=== PATIENT | male | born 1950 | race African-American/Black ===

== ENCOUNTER 2021-02-15 10:32 | Outpatient (CLI) | payer MEDICARE, MEDICAID, SELFPAY ==
--- NOTE | ~2021-02-15 | CT_ITS ---
EXAMINATION: CT diagnostic chest w con EXAM DATE: 02/15/2021 11:14 INDICATION: Chest X-Ray alert, abnormal CXR. Shortness of breath. TECHNIQUE: Spiral CT of the chest following intravenous injection of 75 mL Omnipaque 350. Axial, cor onal and sagittal images of the chest were reviewed. Coronal maximum intensity pixel images of chest reviewed. The dose-length product (DLP) for this examination was 310.47 mGy-cm. The exposure was t ailored according to patient size (auto mA exposure control), and iterative reconstruction (ASIR) was used as additional dose reduction technique. There is no prior study for comparison. FINDINGS: There is right apical mass measuring 8 cm, with chest wall invasion and erosion of the lef t 3rd rib inner aspect, Pancoast tumor. CT-guided for cutaneous biopsy indicated for histologic corre lation. There is moderate emphysema. There are no pleural or pericardial effusions. Tracheobronchial tree i s patent. There is no mediastinal, hilar or axillary lymphadenopathy. There is no pneumothorax. Heart normal in size. There is mild coronary arterial calcification, arterial sclerosis. There is a left adrenal gland 5.5 cm mass, probably metastatic lesion. Small osteolytic lesion in the right 10th rib, likely metastatic. IMPRESSION: 1. Right upper lobe 8 cm mass with chest wall invasion; recommend CT-guided biopsy. 2. 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 3. Moderate emphysema. Reviewed, dictated and finalized at location B. N FOLDER IMPRESSION: 1. Right upper lobe 8 cm mass with chest wall invasion; recommend CT-guided bi opsy. 2. 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 3. Moderate emphysema.
[2021-02-15 11:05] LABS: Estimated Glomerular Filt Rate > 60
== END 2021-02-15 10:33 | disposition home or self-care (01) ==
PROVIDERS: PCP Internal Medicine; Visit Provider Internal Medicine
DX: R91.8 Other nonspecific abnormal finding of lung field (principal); R06.02 Shortness of breath; D35.02 Benign neoplasm of left adrenal gland; J43.9 Emphysema, unspecified
CPT/HCPCS: 71260; Q9967

== ENCOUNTER 2021-02-28 09:06 | Outpatient (CLI) | payer MEDICARE, MEDICAID, SELFPAY ==
--- NOTE | 2021-02-26 15:43 | PC.NURSE ---
Report to the Outpatient Waiting Room, entrance under the green pavilion located off [facility], at time _9:00AM on date __02/28/21 . OR Time: ___11:00AM . - You and your visitor will be asked a series of questions to screen for COVID 19 for your protection. - A mask is required within the hospital. - Only one visitor is allowed at this time. Patient visitors will be guided where to wait when not with patient. Preoperative COVID Testing Requirements: No COVID Test needed if: (proof is required; if not received patient will have Rapid Test prior to entry) - Patient has received COVID Vaccine at least 14 days prior to procedure date or - Patient has positive COVID test result within last 90 days of surgery date. COVID Test needed if above criteria is not met If not COVID vaccinated a COVID test must be conducted within 72 hours of surgery and patient is asked to isolate self from time of testing until procedure. You will go to the [facility] for your COVID testing. The [facility] is located at the corner of [address] [facility]. You will only be called if COVID results are positive and your surgeon may reschedule your elective surgery date. Patients may have clear liquids (water, carbonated beverages, clear teas, apple juice) until 3 hours prior to surgery with a maximum of 20 ounces. - No food from midnight until time of surgery NPO 6 HRS PRE-PROCEDURE (5:00AM) - Infants may have breast milk until 4 hours before surgery, formula 6 hours prior to surgery. - Children will be allowed to drink immediately following surgery. If applicable, please bring a bottle or sippy cup to assist with drinking. Juice, water, soda, and popsicles are readily available. For infants on formula, please bring formula the day of surgery. Pacifiers are allowed. Take the following medications with a SIP of water the morning of surgery: AM MEDS WITH SIPS OF WATER Medications to discontinue per physician NONE Date to take last dose Please no make-up, nail albanian, hairspray, perfume, deodorant, or body powder the day of surgery. No jewelry (including any body piercings) or valuables the day of surgery, leave them at home. Please take a shower or bath the night before, or the morning of, surgery with an antibacterial soap. Wear comfortable, loose fitting clothing. Children are encouraged to wear pajamas. - Jewelry must be removed prior to entering the operating room. Rings and piercings that are not removed may be cut off. - The hospital will not accept responsibility for valuables. - Please leave all valuables, including medications, at home the day of surgery. If you are going home after surgery, a licensed chuck wagon driver must drive you home. - NO public transportation without another adult. - We recommend that an adult stay with you for 24 hours following discharge. - We also recommend that you do not drive, make important decision, drink alcoholic beverages, or take any drugs that were not prescribed by your health care provider for at least 24 hours after your discharge time. For Pediatric surgeries, we recommend two adults accompany the child home (only one inside the building at this time). Follow any additional instructions given to you from your surgeon. Telephone instructions given to __LYNDON HUFF STAFF and asked if any additional questions and then verbalized understanding. Patient advised to call surgeon office or pre surgery nurse liaison [phone] if any additional questions.
[2021-02-28] VITALS (8 sets, daily range): BP systolic 97–125; BP diastolic 58–72; PULSE 110–123; RESP 16–20; TEMP 36.2; O2SAT 92–100; BMI 22.9
--- NOTE | ~2021-02-28 | XR_ITS ---
EXAMINATION: XR chest 1V DATE: 02/28/2021 12:08 INDICATION: Right lung mass post percutaneous right lung biopsy. TECHNIQUE: frontal view of the chest was obtained. COMPARISON: Chest CT dated 02/15/2021 and 02/28/2021 FINDINGS: Unchanged large right upper lobe mass concerning for primary bronchogenic carcinoma. There is localiz ed pleural thickening peripheral to the mass as well as some subtle cortical erosion along the medial aspect of the right third rib consistent with associated chest wall invasion. Remainder of the lungs are clear. No pleural effusion or pneumothorax. The cardiomediastinal silhouette is normal. IMPRESSION: 1. No pneumothorax, pleural effusion or other acute cardiopulmonary disease post percutaneous biopsy of a right upper lobe mass with chest wall invasion which is concerning for primary bronchogenic carc inoma. Reviewed, dictated and finalized at location A. BOARD MAN IMPRESSION: 1. No pneumothorax, pleural effusion or other acute cardiopulmonary disease pos t percutaneous biopsy of a right upper lobe mass with chest wall invasion which is concerning for primary bronchogenic carcinoma.
--- NOTE | ~2021-02-28 | CT_ITS ---
EXAMINATION: CT biopsy lung w/imaging DATE: 02/28/2021 12:21 INDICATION: Right upper lobe mass TECHNIQUE: The procedure including the risks and benefits was discussed with the patient and Shona Faustin, the patient's power of personal injury attorney. Risks discussed included infection, approximately 1/20 risk o f symptomatic hemorrhage beyond mild hemoptysis, approximately 1/3 risk of pneumothorax, and approxim ately 1/10 risk of pneumothorax severe enough to warrant chest tube placement. The patient understood the risks and agreed to proceed. The patient was placed prone. The skin overlying the paraspinal [facility] upper thorax was prepped and draped in sterile fashion. Anesthetic was administered with 1% lido jennifer subcutaneously. A 19 gauge outer needle was advanced under CT guidance to the lesion of intere st. A 20 gauge core biopsy needle was then used to obtain 6 core biopsy specimens. The needle was rem jennifer and the entry site was cleaned and dressed. There were no immediate complications. The dose-epi gth product was 180.21 mGy-cm. FINDINGS: CT images demonstrate the outer needle tip just within an 8.5 x 5.5 cm right upper lobe mas s. The mass does invade the chest wall with erosion of portions of the posterior right second and thi rd ribs. There is also some adjacent pleural thickening in the region of the mass. IMPRESSION: 1. Successful CT-guided biopsy of an 8.5 x 5.5 cm right upper lobe mass which invades the chest wall. Reviewed, dictated and finalized at location A. YARD OPERATOR IMPRESSION: 1. Successful CT-guided biopsy of an 8.5 x 5.5 cm right upper lobe mass which i nvades the chest wall.
--- NOTE | ~2021-02-28 | XR_ITS ---
XR chest 1V portable 02/28/2021 13:10 Indication: Post image guided lung biopsy Procedure: AP portable chest Comparison: 02/28/2021 Findings: No pneumothorax identified post procedure. Right upper lobe mass, concerning for bronchogen ic carcinoma. Overall, no significant change. Impression: 1: No pneumothorax identified post procedure. Reviewed, dictated and finalized at location B. ETBALL PLAYER Impression: 1: No pneumothorax identified post procedure.
--- NOTE | ~2021-02-28 | XR_ITS ---
EXAMINATION: XR chest 1V portable DATE: 02/28/2021 15:09 INDICATION: Status post percutaneous biopsy of a right upper lobe mass. TECHNIQUE: frontal view of the chest was obtained. COMPARISON: Chest radiograph dated 02/28/2021 at 1:06 PM FINDINGS: Right upper lobe mass and adjacent pleural thickening. Remainder of the lungs are clear. No pleural e ffusion or pneumothorax. The cardiomediastinal silhouette is normal. IMPRESSION: 1. No pneumothorax, hemothorax or other acute cardiopulmonary disease post biopsy of a right upper lo be mass concerning for malignancy which invades the chest wall. Reviewed, dictated and finalized at location A. UTER FORENSICS EXAMINER IMPRESSION: 1. No pneumothorax, hemothorax or other acute cardiopulmonary disease post biop sy of a right upper lobe mass concerning for malignancy which invades the chest wall.
[2021-02-28 10:20] LABS: INR 0.9; Prothrombin Time 12.2 Seconds (11.1-14.7)
[2021-02-28 10:56] LABS: Mean Platelet Volume 8.8 fl (7.4-10.4); Platelet Count Result 276 k/mm3 (150-375)
--- NOTE | 2021-02-28 15:44 | SUR.PHASEII ---
1535 dr rousseau at bedside to see patient. chest xray looks good, procedure went well. vital signs stable, no pain, patient on room air. discharge instructions gone over with pt/landcare officer. patient okay to be discharged per dr rousseau.
== END 2021-02-28 15:40 | disposition home or self-care (01) ==
PROVIDERS: PCP Internal Medicine; Visit Provider Radiology Diagnostic Radiology
PROC: BB24ZZZ Computerized Tomography (CT Scan) of Bilateral Lungs (ICD-10-PCS; CPT 32408; principal; 2021-02-28 11:00)
DX: C34.11 Malignant neoplasm of upper lobe, right bronchus or lung (principal)
CPT/HCPCS: 32408; 36415; 71045; 81210; 81235; 81275; 81276; 85049; 85610; 88271; 88274; 88305; 88342; 88360; 88381

== ENCOUNTER 2021-03-28 08:08 | Outpatient (CLI) | payer MEDICARE, MEDICAID, SELFPAY ==
--- NOTE | ~2021-03-28 | MR_ITS ---
EXAMINATION: MR foot RT wo con DATE: 03/28/2021 09:55 INDICATION: Right foot swelling and pain TECHNIQUE: Magnetic resonance imaging (MRI) of the right fore/mid foot was performed without intraven ous contrast. Sequences included sagittal T1-weighted FSE, sagittal fluid sensitive FSE STIR, coronal PD-weighted FS FSE, coronal T1-weighted FSE, axial PD-weighted FS FSE, and axial PD-weighted FSE. COMPARISON: None FINDINGS: There is a T1 hypointense, heterogeneously T2 hyperintense mass at the lateral right forefoot which m easures 5.6 cm proximal to distal and 3.5 x 3.1 cm in maximal orthogonal dimensions. The mass is cent ered within the fifth metatarsal diaphysis which has been largely destroyed and the mass erodes appro ximately half way across the adjacent diaphysis of the fourth metatarsal. There is no significant mar row edema within the fifth metatarsal immediately abutting the lesion to suggest an infectious etiolo gy in this most likely represents malignancy which could be either primary or metastatic. There is mi ld marrow edema in the remaining bone at the base of the fifth metatarsal. The remaining bones in the visualized right forefoot and midfoot are unremarkable. There is moderate fatty atrophy throughout t he intrinsic musculature of the foot. Nonspecific diffuse mild edema in the intrinsic musculature and subcutaneous dorsal subcutaneous fat of the foot. Physiologic amount of fluid in the joint spaces. N o abnormal fluid collections identified. IMPRESSION: 1. 5.6 x 3.5 x 3.1 cm destructive likely malignant mass centered within a largely destroyed in the fi fth metatarsal diaphysis and eroding into the adjacent fourth metatarsal diaphysis. This most likely metastatic related to the previously biopsy-proven right apical lung cancer in the presence of an add itional lytic lesion seen on chest CT at the right 10th rib. Reviewed, dictated and finalized at location A. AISER PERSONAL PROPERTY IMPRESSION: 1. 5.6 x 3.5 x 3.1 cm destructive likely malignant mass centered within a large ly destroyed in the fifth metatarsal diaphysis and eroding into the adjacent fo urth metatarsal diaphysis. This most likely metastatic related to the previousl y biopsy-proven right apical lung cancer in the presence of an additional lytic lesion seen on chest CT at the right 10th rib.
== END 2021-03-28 08:09 | disposition home or self-care (01) ==
PROVIDERS: PCP Internal Medicine; Visit Provider Internal Medicine
DX: M79.89 Other specified soft tissue disorders (principal); R93.6 Abnormal findings on diagnostic imaging of limbs
CPT/HCPCS: 73718

== ENCOUNTER 2021-03-30 15:03 | Emergency (ER) | payer MEDICARE, MEDICAID, SELFPAY ==
[2021-03-30] VITALS (40 sets, daily range): BP systolic 52–130; BP diastolic 40–78; PULSE 53–117; RESP 5–20; TEMP 36.1; O2SAT 8–100
--- NOTE | ~2021-03-30 | XR_ITS ---
EXAMINATION: XR chest ET placement EXAM DATE: 03/30/2021 15:48 INDICATION: Intubated, shortness of breath. Unresponsive earlier today. TECHNIQUE: Portable AP frontal chest x-ray was obtained. Comparison is made to prior examination from 02/28/2021. FINDINGS: Endotracheal tube and feeding tube are in expected positions. There is dense right upper lobe airspace disease consistent with malignancy. Chest wall invasion was demonstrated on CT last month. Possible ill-defined mild bilateral perihilar pneumonia or edema. Ther e are no sizable pleural effusions. There is no pneumothorax suspected. Cardiomediastinal silhoue tte is normal. The bones and soft tissues are unremarkable. Distended air-filled bowel. IMPRESSION: 1. Tubes in position. 2. Possible developing of acute perihilar pneumonia or edema. 3. Right upper lobe mass. 4. Distended air-filled bowel. Reviewed, dictated and finalized at location A. UETTER OPERATOR
--- NOTE | ~2021-03-30 | CT_ITS ---
EXAMINATION: CT chest abdomen pelvis w con EXAM DATE: 03/30/2021 16:40 INDICATION: Unresponsive, abdominal distension. Respiratory failure. TECHNIQUE: Spiral CT of the chest, abdomen and pelvis was performed following intravenous injection o f 100 mL Omnipaque 350. Axial, coronal and sagittal images chest, abdomen and pelvis were reviewed. Coronal maximum intensity pixel images of chest reviewed. The dose-length product (DLP) for this ex amination was 1028.17 mGy-cm. The exposure was tailored according to patient size (auto mA exposure control), and iterative reconstruction (ASIR) was used as additional dose reduction technique. John red to prior chest CT from 03/10/2021 FINDINGS: Endotracheal and nasogastric tubes are in position. CHEST: There is right necrotic apical mass measuring 8 cm, with chest wall invasion and erosion of t he left 2nd and 3rd ribs, correlate with biopsy results from last month. Interval development of bilateral dependent subsegmental atelectasis. There is moderate emphysema. No central pulmonary emboli. Trace pleural effusions. Tracheobronchial tree is patent. There is no m ediastinal, hilar or axillary lymphadenopathy. There is no pneumothorax. Heart normal in size. There is mild coronary arterial calcification, arterial sclerosis. Bilateral gynecomastia. ABDOMEN PELVIS: No free intraperitoneal gas. There is redundant transverse colon with severe gaseous distention, up to 8 cm. The descending colon is mostly collapsed. Several regions of moderately diste nded sigmoid colon. No distal colonic mass. Findings are most consistent with colonic ileus. No pneum atosis. Again there is 5.6 cm left adrenal mass likely metastatic lesion. Liver, spleen, right adrenal gland, pancreas are unremarkable. Gallbladder is unremarkable. No biliary obstruction. Portal and splenic veins are patent. Kidneys enhance symmetrically. There is no hydronephrosis. Bifurcated left renal pelvis. Mild prostatomegaly. The bladder is collapsed with Cardoza catheter balloon anchor inside. There is no retroperitoneal or pelvic lymphadenopathy. There is mild scattered arteriosclerotic dis ease. Right 10th rib osteolytic metastatic lesion. T10 transverse process and pedicle metastatic lesion. Th ere is right iliac crest 4 cm metastatic lesion. IMPRESSION: 1. Severe gaseous distention of the colon without obstructing mass identified. 2. Right apical necrotic mass with chest wall invasion. 3. Development of bibasilar dependent atelectasis and trace pleural effusions. 4. Left renal metastatic lesion. 5. Scattered osteolytic disease. 6. ET, NG, Cardoza tubes in position. Reviewed, dictated and finalized at location A. YARD ELECTRICAL PERSON
--- NOTE | ~2021-03-30 | CT_ITS ---
EXAMINATION: CT brain wo con EXAM DATE: 03/30/2021 16:38 INDICATION: Altered mental status. TECHNIQUE: Spiral CT of the head was performed without contrast. Axial, coronal and sagittal images were reviewed. The dose-length product (DLP) for this examination was 605.33 mGy-cm. The exposure w as tailored according to patient size, and iterative reconstruction (ASIR) was used as additional dos e reduction technique. There is no prior study for comparison. FINDINGS: There is no acute intraparenchymal hemorrhage. No evidence of intraparenchymal brain mass lesion. No evidence of acute infarction. Please note that initial head CT has limited sensitivity f or small or acute infarctions. 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 There is mild jennifer ventricular and subcortical hypodensity, nonspecific but probably related to small vessel ischemic di sease. There is mild prominence of the sulci and ventricles related to cerebral atrophy. There is intracranial carotid arteriosclerosis. There are no extra-axial collections. There is no mass effe ct or midline shift. The orbits are unremarkable. Soft tissue is unremarkable. Moderate ethmoid mu coperiosteal thickening. Mastoid air cells are well aerated. IMPRESSION: 1. No acute intracranial findings. 2. Chronic age related findings. 3. Moderate ethmoid mucoperiosteal thickening. Reviewed, dictated and finalized at location A. STOCK JUDGING COACH
--- NOTE | ~2021-03-30 | XR_ITS ---
EXAMINATION: XR abdomen NG/feed tube insert EXAM DATE: 03/30/2021 15:48 INDICATION: Orogastric tube placement. TECHNIQUE: Portable AP frontal chest x-ray was obtained. There is no prior study for comparison. FINDINGS: Severely distended air-filled colon-there was moderate distention one week ago. Consider co lonic ileus or distal colonic obstruction. No suspicion of small bowel obstruction. Feeding tube is i n position. Lower lumbar spondylosis. IMPRESSION: Severe gaseous colonic distention, could be colonic ileus or distal colonic obstruction. Consider follow-up CT when patient is able. Reviewed, dictated and finalized at location A. OSTRIPPER
--- NOTE | 2021-03-30 15:10 | ECG_ITS ---
Measurements Intervals [place] Rate: 94 P: 71 VA: 153 QRS: 79 QRSD: 106 T: 6 QT: 379 QTc: 475 Interpretive Statements SINUS RHYTHM T WAVE ABNORMALITY IN ANTERIOR LEADS- CONSIDER ISCHEMIA BASELINE ARTIFACT- I, II, V4-V5 ABNORMAL ECG Electronically Signed On 03-30-2021 16:47:36 COMPUTER COMPOSITOR by Chase Arenas D.O.
--- NOTE | 2021-03-30 15:10 | PC.NURSE ---
Pt intubated with 7.5 ETtube, 27 at the lip. Placement verified with auscultation and color change.
[2021-03-30] MEDS: MIDAZOLAM HCL (*CRX) 2 MG/2 ML VIAL IV PUSH (15:12)
--- NOTE | 2021-03-30 15:14 | PC.NURSE ---
16 fr salem sump placed orally. Placement verified by auscultation.
--- NOTE | 2021-03-30 15:19 | ED.GENADULT ---
HPI - General Adult General Chief complaint: Unspecified <Dominic Muñoz MD - Last Filed: 04/02/21 13:05> Stated complaint: unresponsive <Dominic Muñoz MD - Last Filed: 04/02/21 13:05> Time Seen by Provider: 03/30/21 15:12 <Dominic Muñoz MD - Last Filed: 04/02/21 13:05> History of Present Illness HPI narrative: Patient is a 71-year-old male who presents to the ER unresponsive. Patient was at his detention when he collapsed into a [place] tree. He was helped up by staff and again to walk around again and then collapsed once more. After the second episode patient was agonal he breathing. EMS arrived and placed in a gel began bagging. No reports of abnormal symptoms or vital signs prior to the event. <Dominic Muñoz MD - Last Filed: 04/02/21 13:05> Related Data Home medications: Home Medications Medication Instructions Recorded Confirmed acetaminophen [Tylenol] 325 mg PO Q6-8H PRN 02/26/21 02/28/21 amlodipine 5 mg PO QAM 02/26/21 02/28/21 docusate sodium 100 mg PO DAILY 02/26/21 02/28/21 furosemide 40 mg PO DAILY 02/26/21 02/28/21 hydrochlorothiazide 12.5 mg PO DAILY 02/26/21 02/28/21 multivitamin [Multiple Vitamin] 1 tablet PO DAILY 02/26/21 02/28/21 paliperidone palmitate [Invega 78 mg IM Q30D 02/26/21 02/28/21 Sustenna] pantoprazole 40 mg PO QAM 02/26/21 02/28/21 potassium chloride 20 meq PO DAILY 02/26/21 02/28/21 <Dominic Muñoz MD - Last Filed: 04/02/21 13:05> Allergies/adverse reactions: Allergies Allergy/AdvReac Type Severity Reaction Status Date / Time No Known Allergies Allergy Verified 02/28/21 11:50 <Dominic Muñoz MD - Last Filed: 04/02/21 13:05> Review of Systems Review of Systems: ROS unobtainable: Yes unobtainable due to medical condition <Dominic Muñoz MD - Last Filed: 04/02/21 13:05> [facility] Past Medical History Medical History: Medical History (Updated 04/02/21 @ 13:05 by Dominic Muñoz MD) BPH (benign prostatic hyperplasia) Hypertension Lung cancer Schizophrenia <Dominic Muñoz MD - Last Filed: 04/02/21 13:05> Surgical History Surgical History: Surgical History (Updated 03/30/21 @ 22:35 by Dominic Muñoz MD) Surgical history unknown <Dominic Muñoz MD - Last Filed: 04/02/21 13:05> Social History Social History: Social History Gender identity (if verbalized by the patient): Male Sexual Orientation (if Verbalized by the Patient): Straight or Heterosexual Spiritual care concerns: No <Dominic Muñoz MD - Last Filed: 04/02/21 13:05> Exam Narrative: GENERAL: Chronically ill-appearing, well-nourished, unresponsive. HEAD: Normocephalic, atraumatic. EYES: PERRL. ENT: Mucous membranes moist. CHEST: Clear to auscultation, no spontaneous respiratory effort.. HEART: Regular rate and rhythm. Normal peripheral pulses. ABDOMEN: Soft, nontender, nondistended. EXTREMITIES: No deformity of the upper or lower extremities. SKIN: Warm, dry, no rash. NEURO: Unconscious, gags on ET tube, no purposeful movements of extremities. <Dominic Muñoz MD - Last Filed: 04/02/21 13:05> Course Reevaluation(s) Reevaluation #1: I discussed the severity of patient's illness with his family. His 2 guardians have made the decision to withdraw care and keep patient comfortable. Extubation order placed. ET tube removed. Patient given a dose of morphine 4 mg for air hunger and was suctioned. <Dominic Muñoz MD - Last Filed: 04/02/21 13:05> Patient CARE was signed out to me by Dr. Muñoz. Plan at signout was to continue comfort care with the patient expected to pass in the emergency department. Patient was found to be asystole on the monitor at 2:13 AM. Patient was evaluated and was confirmed to be pulseless. Time of was 213. Nurse is contacting speaker mounter, primary care physician. <Anjel Hernandez MD - Last Filed: 03/31/21 03:36> Date: 03/30/21 <Dominic Gutiérrez
[2021-03-30] MEDS: MIDAZOLAM 100MG/NS 100ML(*CRX) 100 MG/100 ML BAG IV CONT (15:45)
[2021-03-30] MEDS: FENTANYL 2,500MCG/NS250ML(*CRX 2,500 MCG/250 ML BAG IV CONT (15:46)
[2021-03-30] MEDS: SODIUM CHLORIDE 0.9% IV 1,000 ML 999 ML IV CONT ×2 (15:54→15:56)
[2021-03-30 16:01] LABS: Hematocrit 34.2 % (42.0-52.0); Hemoglobin 10.4 g/dL (14.0-18.0); Mean Corpuscular HGB Conc 30.4 g/dl (32-36); Mean Corpuscular Hemoglobin 25.3 pg (26-34); Mean Corpuscular Volume 83.2 fl (80-100); Mean Platelet Volume 8.9 fl (7.4-10.4); Platelet Count Result 325 k/mm3 (150-375); Red Blood Count 4.11 M/mm3 (4.6-6.20); Red Cell Distribution Width 17.3 % (11.5-14.5)
[2021-03-30 16:12] LABS: Prothrombin Time 13.3 Seconds (11.1-14.7)
[2021-03-30 16:13] LABS: Partial Thromboplastin Time 26.2 SECONDS (22.3-36.8)
[2021-03-30 16:16] LABS: Lactic Acid Reflex 4.9 mmol/L (0.7-2.1)
[2021-03-30 16:25] LABS: Alanine Aminotransferase 20 U/L (4-50); Albumin Level 3.5 g/dL (3.5-5.1); Alkaline Phosphatase 103 U/L (38-126); Anion Gap 9 mmol/L (8-16); Aspartate Amino Transferase 39 U/L (17-59); Bilirubin,Total 0.4 mg/dL (0.2-1.3); Blood Urea Nitrogen 27 mg/dL (9-20); Calcium 8.5 mg/dL (8.4-10.2); Carbon Dioxide 35 mmol/L (22-30); Chloride 81 mmol/L (98-107); Estimated CRCL calculation 71 ml/min; Estimated Glomerular Filt Rate > 60; Glucose 174 mg/dL (65-110); Potassium 5.1 mmol/L (3.4-5.0); Sodium 125 mmol/L (137-145)
[2021-03-30 16:30] LABS: NT Pro B Type Natriuretic Pept 12600 pg/mL (5-100); Troponin I 0.072 ng/mL (0.000-0.034)
[2021-03-30 16:37] LABS: Lymphocytes Absolute Manual 1.36 K/mm3 (1.1-4.5); Monocytes Absolute Manual 1.19 K/mm3 (0.1-0.90); Monocytes Percent Manual 7 % (3-9); Neutrophils Percent Manual 85 % (46-73); Nucleated Red Blood Cells 2 %; Total Cells Counted 100
[2021-03-30 16:38] LABS: Anisocytosis 2+ (NORMAL); Hypochromasia 1+ (NORMAL); Platelet Estimate Adequate (Adequate)
[2021-03-30 16:50] LABS: Add Urine Microscopic? YES; Appearance Urine Cloudy (Clear); Bacteria Urine Trace /hpf; Bilirubin Urine Negative (Negative); Blood Urine Negative (Negative); Color Urine Yellow (Yellow); Glucose Urine UA Negative (Negative); Hyaline Casts Urine 30-49 /lpf; Ketones Urine Negative (Negative); Leukocyte Esterase Ur Negative LEU/UL (Negative); Mucus Urine Rare /lpf; Nitrate Urine Negative (Negative); Protein Urine 2+ mg/dL (Negative); Specific Grav Ur 1.011 (1.001-1.035); Squamous Epithelial Cell Urine Occasional /hpf (Few); Urobilinogen Urine Negative mg/dL (<2.0); WBC Urine 0-3 /hpf
[2021-03-30 17:06] LABS: Alveolar/Arterial O2 Gradient 187.5 mmHg; Base Excess ABG 6.5 mEq/l (+/-2.0); Fractional Inspired Oxygen 80 %; HCO3 ABG 34.8 mEq/l (22.0-26.0); Oxygen Content ABG 14.8 %vol (16.0-22.0); Oxygen Saturation ABG 99.6 % (95.0-100.0); Oxyhemoglobin 98.5 % THb (90.0-100.0); PO2 ABG 305.3 mmHg (80.0-100.0); PO2 FiO2 Ratio Arterial Blood 3.82 %; Total Hemoglobin 10.1 g/dL (12.0-18.0)
[2021-03-30 17:11] LABS: PCO2 ABG 73.9 mmHg (35.0-45.0); Site Drawn LEFT BRACHIAL; pH ABG 7.291 (7.350-7.450)
[2021-03-30 17:12] LABS: Device VENTILATOR
[2021-03-30 17:13] LABS: Arterial Blood Gas PEEP 5 cmH2O; Arterial Blood Gas Pressure Support 0 cmH2O; Arterial Blood Gas Tidal Volume 450 ml; Arterial Blood Gas Vent Mode CMV; Arterial Blood Gas Ventilator rate 16 /MIN
--- NOTE | 2021-03-30 17:52 | PC.NURSE ---
Extubated by ERP and RT.
[2021-03-30] MEDS: MORPHINE SULFATE (*CRX) 4 MG/ML INJ IV PUSH ×2 (18:08→22:26)
--- NOTE | 2021-03-30 18:44 | PC.NURSE ---
Unresponsive. No gag reflex when suctioning.
[2021-03-30 18:59] LABS: Reflex Lactic Acid Yes or No Add Lactic
--- NOTE | 2021-03-30 19:19 | PC.NURSE ---
Pt appears to be resting comfortably, Rn notes some excess secretions to throat, Dr. Muñoz asked for atropine gtts to help reduce secretions. waiting on medication from pharmacy
[2021-03-30] MEDS: ATROPINE SULFATE 1% OPHTH SOLN 5 ML BOTTLE 1 DROP SUBLINGUAL ×2 (19:58→22:27)
--- NOTE | 2021-03-30 20:01 | PC.NURSE ---
Pt has severe excess secretions noted, drooling down onto chest. Pt cleaned of secretions and repositioned head so that secretions would drain, rather that sit in mouth. Atropine gtts given to assist with drying secretions and mouth suctions of excess secretions at this time. Pt now resting comfortably.
--- NOTE | 2021-03-30 22:33 | PC.NURSE ---
pt given morphine and Atropine gtts for comfort. secretions have decreased now, but still has some noted to throat with rattle. pt suctioned and repositioned. now appears more comfortable.
[2021-03-31] VITALS (15 sets, daily range): BP systolic 58–87; BP diastolic 41–59; PULSE 0–92; RESP 0–9; O2SAT 47–92
[2021-03-31] MEDS: MORPHINE SULFATE (*CRX) 4 MG/ML INJ IV PUSH (00:43)
--- NOTE | 2021-03-31 02:21 | PC.NURSE ---
Attempted to call Shona Pandey regarding patient passing. Message left.
--- NOTE | 2021-03-31 06:04 | PC.NURSE ---
RN noted that on paperwork from [facility] there is a home listed as [facility] in [place], RN attempted to call @[phone] but number does not ring. other staff also attempted to call with the same result.
--- NOTE | 2021-03-31 06:24 | PC.NURSE ---
RN was able to get in contact with [facility] to notify of pts passing. family requesting an autopsy, RN notified them that the senior cytotechnologist was aware of pt condition upon arrival to the ER and did not request an autopsy, if she is wanting one, she will need to pay to get a private one, family verbalized understanding. family did verify that [facility] the preferred home.
--- NOTE | 2021-03-31 06:27 | PC.NURSE ---
RN found 2nd contact number for home [phone] but unable to get in contact with anyone, phone does not ring at all when attempting.
--- NOTE | 2021-03-31 06:28 | PC.NURSE ---
Jonas with [facility] called back to notify that pt has been medically ruled out at this time and body is released to the care of the preferred home.
== END 2021-03-31 05:20 | disposition expired ==
PROVIDERS: Emergency Medicine; Emergency Provider Emergency Medicine; PCP Internal Medicine
DX: I46.9 Cardiac arrest, cause unspecified (principal); C34.90 Malignant neoplasm of unspecified part of unspecified bronchus or lung; I10 Essential (primary) hypertension; F20.9 Schizophrenia, unspecified; N40.0 Benign prostatic hyperplasia without lower urinary tract symptoms; R94.31 Abnormal electrocardiogram [ECG] [EKG]
CPT/HCPCS: 31500; 36415; 36600; 70450; 71260; 74177; 80053; 81001; 82805; 83605; 83880; 84484; 85025; 85610; 85730; 87040; 87147; 87181; 87186; 93005; 96361; 96365; 96366; 96368; 96375; 99291; A9270; J2001; J2060; J2250; J2270; J3010; J7030; Q9967